=== PATIENT | male | born 1975 | race Caucasian/White ===

== ENCOUNTER 2018-05-25 18:34 | Emergency (ER) | payer SELFPAY ==
[2018-05-25] MEDS ORDERED: Lidocaine/EPINEPHrine/Tetracaine Soln 1 ML TOP ONE (19:15)
--- NOTE | 2018-05-25 19:18 | EDM.PDOC ---
ED HPI GENERAL MEDICAL PROBLEM - General Chief Complaint: Laceration Stated Complaint: CUT ON HEAD Time Seen by Provider: 05/25/18 19:04 Source of Information: Reports: Patient History Limitations: Reports: No Limitations - History of Present Illness INITIAL COMMENTS - FREE TEXT/NARRATIVE: HISTORY AND PHYSICAL: History of present illness: Patient is a 42-year-old male who presents to the emergency room with complaints of a laceration to the top of the scalp. He states that a lin from the pickup truck had fallen and hit him on top of the head. He denies any loss of consciousness, change in vision, head or neck pain. He states "I'm just here to make sure if I needs stitches or not". States his tetanus is up-to-date within the last 5 years. Denies any fall or any other body complaint injury. Review of systems: As per history of present illness and below otherwise all systems reviewed and negative. Past medical history: As per history of present illness and as reviewed below otherwise noncontributory. Surgical history: As per history of present illness and as reviewed below otherwise noncontributory. Social history: See social history for further information Family history: As per history of present illness and as reviewed below otherwise noncontributory. Physical exam: General: Well-developed and well-nourished 42-year-old male. Alert and oriented. Nontoxic appearing and in no acute distress. HEENT: 3cm laceration to top of scalp; unable to pull apart but could use sutures. Mild tenderness at the laceration site, otherwise nontender with palpation. No cervical spine tenderness, crepitus or obvious deformities. Normocephalic, pupils equal and reactive bilaterally, negative for conjunctival pallor or scleral icterus, mucous membranes moist, TMs normal bilaterally, throat clear, neck supple, nontender, trachea midline. No drooling or trismus noted. No meningeal signs. No hot potato voice noted. Lungs: Clear to auscultation, breath sounds equal bilaterally, chest nontender. Heart: S1S2, regular rate and rhythm without overt murmur Abdomen: Soft, nondistended, nontender. Negative for masses or hepatosplenomegaly. Negative for costovertebral tenderness. Pelvis: Stable nontender. Genitourinary: Deferred. Rectal: Deferred. Skin: Intact, warm, dry. No lesions or rashes noted. Extremities: Atraumatic, moves all extremities per self without difficulty or deficits, negative for cords or calf pain. Neurovascular unremarkable. Neuro: Awake, alert, oriented. Cranial nerves II through XII unremarkable. Cerebellum unremarkable. Motor and sensory unremarkable throughout. Exam nonfocal. Notes: I did offer the patient a head CT which she declines. He denies any loss of consciousness and states that he feels "fine". The laceration is no deep, but appears it could split if prevoked. Will give han to reinforce the area. Topical gel was used to anesthetize the area. The area was cleansed with chlorhexidine. #4 han placed without any complications. Supportive care measures were reviewed and discussed. Head injury instructions were reviewed and discussed. He voices understanding and is agreeable to plan of care. Denies any further questions or concerns at this time. Diagnostics: Declines Therapeutics: LET gel, han Prescription: None Impression: Head injury Scalp laceration Plan: 1. Keep the area clean and dry. Continue to monitor for signs of infection. You may wash your hair as normal, be careful with the han. Han to be removed in approximately 7- 10 days. 2. Tylenol and/or ibuprofen as needed for pain management. Please review and follow the head injury instructions that we discussed her printed in your packet. 3. Follow-up with your primary caregiver in the next 1-2 days. Return to the ED as needed and as discussed. Definitive disposition and diagnosis as appropriate pending reevaluation and review of above. laceration top of head Pain Score (Numeric/FACES): 5 - Related Data Allergies Allergy/AdvReac Type Severity Reaction Status Date / Time morphine Allergy Vomiting Verified 05/25/18 19:13 Home Meds: Home Meds . [No Known Home Meds] 05/25/18 [History] Past Medical History - Past Health History Medical/Surgical History: Denies Medical/Surgical History Other Psychiatric History: states has anxiety as a child ED ROS GENERAL - Review of Systems Review Of Systems: ROS reveals no pertinent complaints other than HPI. ED EXAM, SKIN/RASH Exam: See Below (See dictation) Course - Vital Signs Last Recorded V/S: Last Vital Signs Temp 97.2 F 05/25/18 19:45 Pulse 70 05/25/18 19:45 Resp 18 05/25/18 19:45 BP 126/88 05/25/18 19:45 Pulse Ox 97 05/25/18 19:45 - Orders/Labs/Meds Meds: Medications Discontinued Medications Generic Name Dose Route Start Last Admin Trade Name Leonardo PRN Reason Stop Dose Admin Lidocaine/Tetracaine 1 ml 05/25/18 19:15 05/25/18 19:23 Jacqui PINA 05/25/18 19:16 1 ml ONETIME ONE Administration Departure - Departure Time of Disposition: 19:31 Disposition: Home, Self-Care 01 Clinical Impression: Head injury Qualifiers: Encounter type: initial encounter Qualified Code(s): S09.90XA - Unspecified injury of head, initial encounter Scalp laceration Qualifiers: Encounter type: initial encounter Qualified Code(s): S01.01XA - Laceration without foreign body of scalp, initial encounter - Discharge Information Instructions: Head Injury, Adult, [id number], Laceration Care, Adult, Easy-to -Read Referrals: PCP,None [Primary Care Provider] - Forms: ED Department Discharge Additional Instructions: The following information is given to patients seen in the emergency department who are being discharged to home. This information is to outline your options for follow-up care. We provide all patients seen in our emergency department with a follow-up referral. The need for follow-up, as well as the timing and circumstances, are variable depending upon the specifics of your emergency department visit. If you don't have a primary care physician on staff, we will provide you with a referral. We always advise you to contact your personal physician following an emergency department visit to inform them of the circumstance of the visit and for follow-up with them and/or the need for any referrals to a consulting specialist. The emergency department will also refer you to a specialist when appropriate. This referral assures that you have the opportunity for follow-up care with a specialist. All of these measure are taken in an effort to provide you with optimal care, which includes your follow-up. Under all circumstances we always encourage you to contact your private physician who remains a resource for coordinating your care. When calling for follow-up care, please make the office aware that this follow-up is from your recent emergency room visit. If for any reason you are refused follow-up, please contact the [facility] at and asked to speak to the emergency department charge nurse. [facility] [address] [place] [address] [facility] [address] [place] [address] 1. Keep the area clean and dry. Continue to monitor for signs of infection. He may wash her hair as normal, be careful with the han. Han to be removed in approximately 7- 10 days. 2. Tylenol and/or ibuprofen as needed for pain management. Please review and follow the head injury instructions that we discussed her printed in your packet. 3. Follow-up with your primary caregiver in the next 1-2 days. Return to the ED as needed and as discussed.
[2018-05-25 20:10] VITALS: BP 126/88
== END 2018-05-25 19:45 | disposition home or self-care (01) ==
LOC: MW.ED 18:34
DX: S09.90XA Unspecified injury of head, initial encounter (principal); S01.01XA Laceration without foreign body of scalp, initial encounter; Z88.5 Allergy status to narcotic agent; W20.8XXA Other cause of strike by thrown, projected or falling object, initial encounter
CPT/HCPCS: 12002; 99282; 99283

== ENCOUNTER 2018-06-03 14:00 | Emergency (ER) | payer SELFPAY ==
[2018-06-03 14:28] VITALS: BP 147/98
== END 2018-06-03 14:29 | disposition left against medical advice (07) ==
LOC: MW.ED 14:00
DX: Z53.21 Procedure and treatment not carried out due to patient leaving prior to being seen by health care provider (principal)